=== PATIENT | female | born 1985 | race Caucasian/White ===

== ENCOUNTER → 2017-10-29 09:20 | Outpatient (CLI) | payer OTHER, SELFPAY ==
--- NOTE | 2017-10-29 | DI.US.S_ITS ---
PROCEDURE: US ABDOMEN LIMITED INDICATIONS: UMBILICAL HERNIA WITHOUT OBSTRUCTION TECHNIQUE: Real-time focused scanning was performed of the abdomen, with image documentation. COMPARISON: None. FINDINGS: There is a 2.9 x 1.8 x 2.9 cm bowel containing anterior abdominal hernia in the area palpated by the patient. The neck measures 1.1 cm in diameter. This is not reducible. No findings to suggest bowel dilatation or obstruction. IMPRESSION: 1. Bowel containing umbilical hernia without findings to suggest obstruction at this time. Surgical consultation recommended. These findings were discussed with CED Love at 9:18 AM on 10/29/17. Dictated by: Gisselle Scott M.D. on 10/29/2017 at 9:03 Approved by: Gisselle Scott M.D. on 10/29/2017 at 9:19
== END ==
PROVIDERS: PCP Physician Assistant; Visit Provider Nurse Practitioner Family
DX: K42.9 Umbilical hernia without obstruction or gangrene (principal)
CPT/HCPCS: 76705

== ENCOUNTER 2017-12-23 06:34 | Day surgery (SDC) | payer OTHER, SELFPAY ==
[2017-12-10 07:50] VITALS: BMI 24.4
[2017-12-23 07:17] VITALS: BP 110/71; PULSE 68; RESP 15; TEMP 36.2; O2SAT 98; BMI 24.4
--- NOTE | 2017-12-23 08:12 | SUR.OPER ---
Supine on padded OR bed, head on pillow, arms secured on padded arm boards at <90 degrees abduction, legs uncrossed, safety belt at thigh, tape over blanket over lower legs.
[2017-12-23] MEDS: LACTATED RINGERS 1,000 ML 42 ML IV (08:22)
[2017-12-23] MEDS: CEFAZOLIN 2 GM/100 ML FROZ.PIGGY IV (08:40)
--- NOTE | 2017-12-23 08:51 | PM.PREOP ---
Pre-operative Note Interval Note Pre-op Check: Yes History & Physical Reviewed by Physician Changes: No
[2017-12-23] MEDS: BUPIVACAINE 0.5% (PF) VIAL 30 ML INJ (09:05)
[2017-12-23] MEDS: LIDOCAINE 1% W/EPI INJ 20 ML INJ (09:06)
[2017-12-23 09:43] VITALS: BP 106/56; PULSE 99; RESP 15; TEMP 36.2; O2SAT 100
--- NOTE | 2017-12-23 09:46 | PM.OP.1 ---
Operative Date/Time/Diagnoses Date of procedure: 12/23/17 Time of procedure: 09:46 Pre-op diagnosis: Umbilical hernia Post-op diagnosis: same Procedure & Clinicians Procedure: Umbilical hernia repair Same procedure as scheduled: Yes Indications: Painful and enlarging umbilical hernia Surgeon: Caroline Mackey Anesthesia Type: General (Dr. Coleman) Operative Notes Findings: 5 mm umbilical defect with a much larger hernia sac of approximately 4 cm size Closure Type: primary Specimen(s): none sent Implants & Drains: None Estimated Blood Loss (mL): 5 Procedure in detail: After obtaining informed consent, the patient was brought to the operating room and placed in the supine position on the operating table. Following successful induction of general anesthesia, appropriate padding of all bony prominences, and placement of appropriate monitors, the abdomen was prepped and draped in the standard surgical fashion. A timeout was held per SCOAP protocol. We began by infiltrating a mixture of local anesthetics directly over the hernia defect and in the fascia around the defect at the umbilicus. This was done to create a field block. An incision was then created directly over the hernia defect and the palpable sac. This was carried carefully down through the skin and subcutaneous tissue until the sac was easily visible and palpable. The edges of the hernia were carefully defined. It was determined to be approximately 0.5 cm in greatest dimension. The contents of the hernia sac consisted of approximately 4 cm of preperitoneal fat. We elected to repair the defect directly with only 0 Prolene suture. Two interrupted sutures were placed directly across the defect. The repair was checked for completeness and to be sure that all defects were securely approximated. The wound was irrigated with warm saline solution and aspirated free of all fluid. The umbilicus was reconstructed with 0 Vicryl suture. The skin overlying this area was closed in 2 layers. All sponge, needle, and instrument counts were correct at the conclusion of the case. The patient was allowed to awaken from anesthesia without difficulty and taken to the post-anesthesia care unit in good condition. Complications: none Condition: stable Disposition: PACU Plan for aftercare: 1. Discharge to home 2. Follow up with me in 2 weeks
[2017-12-23 09:48] VITALS: BP 112/58; PULSE 90; RESP 15; TEMP 36.2; O2SAT 100
[2017-12-23 09:53] VITALS: BP 114/64; PULSE 80; RESP 16; TEMP 36.4; O2SAT 100
[2017-12-23 10:10] VITALS: BP 116/74; PULSE 78; RESP 20; TEMP 36.3; O2SAT 97
[2017-12-23 10:31] VITALS: BP 115/74; PULSE 74; RESP 20; TEMP 36.4; O2SAT 98
== END 2017-12-23 10:25 | disposition home or self-care (01) ==
PROVIDERS: PCP Physician Assistant; Visit Provider Surgery
PROC: (CPT 49585; principal; 2017-12-23 07:45)
DX: K42.9 Umbilical hernia without obstruction or gangrene (principal)
CPT/HCPCS: 49585; J0690; J1100; J2250; J2405; J2704; J3010

== ENCOUNTER 2023-12-31 18:54 | Emergency (ER) | payer OTHER, SELFPAY ==
[2023-12-31 19:07] VITALS: BP 116/75; PULSE 81; RESP 18; TEMP 36.6; O2SAT 97; BMI 26.5
--- NOTE | 2023-12-31 19:29 | DI.US.S_ITS ---
PROCEDURE: US OB <= 14 WEEKS FETUS INDICATIONS: bleeding/6 weeks OUTSIDE/PRIOR DATING DATA: Last menstrual period (LMP): 11/18/2023. LMP-based estimated date of delivery ([place]): 08/24/2024. TECHNIQUE: Real-time scanning was performed of the fetus and maternal pelvic organs, with image documentation. Endovaginal scanning was also performed to better visualize the fetus and maternal ovaries. COMPARISON: None. FINDINGS: Embryo: Gestational sac measuring 0.85 cm, consistent with 5 weeks and 5 days. No pole is seen. No yolk sac is seen. Heart rate: No pole is seen. Maternal organs: Ovaries are within normal limits. Right ovarian corpus luteal cyst measuring 2.7 cm. IMPRESSION: Gestational sac within the endometrium which would be consistent with 5 weeks and 5 days. No yolk sac or pole is seen. Early intrauterine is in the differential and follow-up beta HCG and ultrasound is recommended as clinically indicated. We strive to produce accurate, complete, and clear reports of imaging services. To assist us in improving patient care, this report was composed using standard report templates and voice recognition software. Therefore, it may contain abnormal punctuation, insertions and/or omissions. Occasional wrong-word or sound-alike substitutions may occur. Though we review the report and make efforts to correct it, we do recommend that the report be read carefully in proper context to recognize any text inaccuracies. Dictated by: Humberto Valverde M.D. on 12/31/2023 at 22:02 Approved by: Humberto Valverde M.D. on 12/31/2023 at 22:04
[2023-12-31 20:09] LABS: Add Manual Diff / Slide Review NO; Basophils Absolute Auto 0 /uL (0-100); Basophils Percent Auto 0.7 % (0-2); Eosinophils Absolute Auto 300 /uL (0-450); Eosinophils Percent Auto 5.6 % (2-4); Hematocrit 37.9 % (36-46); Hemoglobin 12.8 g/dL (12.0-16.0); Lymphocytes Absolute Auto 2100 /uL (1100-4500); Lymphocytes Percent Auto 35.7 % (25-40); Mean Corpuscular HGB Conc 33.8 % (30-36); Mean Corpuscular Hemoglobin 31.7 PG (26-34); Mean Corpuscular Volume 93.7 fL (80-100); Monocytes Absolute Auto 400 /uL (0-900); Monocytes Percent Auto 7.3 % (3-14); Neutrophils Absolute Auto 3000 /uL (1500-7000); Neutrophils Percent Auto 50.7 % (50-75); Platelet Count 296 X10^3/uL (150-400); Red Blood Cell Count 4.05 X10^6/uL (4.0-5.2); Red Cell Distribution Width 12.9 % (11.6-14.8); White Blood Cell Count 5.9 X10^3/uL (4.5-11.0)
[2023-12-31 20:10] LABS: Alanine Aminotransferase 21 IU/L (<35); Albumin 4.2 g/dL (3.5-5.0); Albumin Globulin Ratio 1.4 (1.0-2.8); Alkaline Phosphatase 37 U/L (38-126); Aspartate Aminotransferase 30 IU/L (14-36); BUN Creatinine Ratio 15.6 (6-22); Bilirubin Total 0.4 mg/dL (0.2-1.3); Blood Urea Nitrogen 15 mg/dL (7-17); Calcium 9.4 mg/dL (8.4-10.2); Carbon Dioxide 29 mmol/L (22-32); Chloride 102 mmol/L (98-107); Estimated Glomerular Filt Rate > 60 mL/min (>60); Globulin 2.9 g/dL (1.7-4.1); Glucose 86 mg/dL (70-100); HEMOLYSIS < 15 (0-50); Sodium 135 mmol/L (137-145); Total Protein 7.1 g/dL (6.3-8.2)
[2023-12-31 20:26] LABS: HCG Quantitative /Beta subunit 1690.2 mIU/mL
--- NOTE | 2023-12-31 20:56 | PC.NURSE ---
Patient started having bleeding at 1200. Clots, spotting. Then cramps since 1600
--- NOTE | 2023-12-31 21:09 | PC.NURSE ---
patient is who presents today with spotting starting at 1200 with clots. She developed cramping which has not resolved since 1600. she complains of abd tenderness on palpation. She denies lightheadedness, dizzyness, SOB, or chest pain. She states that she had been treated for shingles with valcycolvir and finished the 7 day course which finished on thursday.
[2023-12-31] MEDS: ACETAMINOPHEN 325 MG TABLET 975 MG PO (21:16)
--- NOTE | 2023-12-31 22:26 | ED.PREGNANCY ---
HPI - General Chief complaint: Vaginal Bleeding Stated complaint: Vaginal Bleeding, 6 wks prgnt sent by OB Time Seen by Provider: 12/31/23 21:14 Source: patient and family Mode of arrival: Ambulatory Limitations: no limitations History of Present Illness HPI Narrative: Patient is a 38 year female presenting today with vaginal bleeding. She reports that she started having some bright red spotting only when she wiped she has not yet gone through a whole pad. She is having more intense abdominal cramping as well. She has never had miscarriage before. Not dizzy or lightheaded. Reports Tylenol isn't quite yet helping. Related Data Home Medications Medication Instructions Recorded Confirmed cholecalciferol (vitamin D3) PO 11/10/17 12/24/23 garlic kyolic PO 11/10/17 12/24/23 omega-3 fatty acids PO 11/10/17 12/24/23 prenat.vits,lowell,ywq-ypeb-djfgz 1 tab PO DAILY 11/10/17 12/24/23 magnesium 250 mg tablet 250 mg PO DAILY 12/24/23 12/24/23 valacyclovir 1 gram tablet 1,000 mg PO Q8H 12/24/23 12/24/23 Allergies Allergy/AdvReac Type Severity Reaction Status Date / Time shrimp Allergy Severe swelling, Verified 12/24/23 15:53 itching Milk Containing Products AdvReac Abdominal Verified 12/24/23 15:54 (Dairy) Pain wheat AdvReac Verified 12/24/23 15:54 CAT DANDER Allergy Mild ITCHY Uncoded 12/24/23 15:53 WATERY EYES DUST AdvReac Mild RED AND Uncoded 12/24/23 15:53 ITCHY SKIN, WATERY EYES, AND SNEEZING pollens AdvReac Mild Sneezing Uncoded 12/24/23 15:53 Exam Initial Vital Signs Initial Vital Signs: Vital Signs Temperature 98 F 12/31/23 19:07 Pulse Rate 81 12/31/23 19:07 Respiratory Rate 18 12/31/23 19:07 Blood Pressure 116/75 12/31/23 19:07 Pulse Oximetry 97 12/31/23 19:07 Oxygen Delivery Method Room Air 12/31/23 19:07 GENERAL: Alert well-appearing 38-year-old female CARDIOVASCULAR: peripheral pulses in tact, cap refill <2 sec RESPIRATORY: No respiratory distress, speaks in full sentences without difficulty ABDOMEN: Soft, nontender, no guarding or rebound EXTREMITIES: Normal range of motion, no clubbing or edema. Neurovascularly intact NEUROLOGICAL: Cranial nerves II through XII grossly intact. Normal gait and speech. SKIN: Warm, dry, no petechiae, no rashes or lesions. Course Orders Ordered: ED Orders 12/31/23 19:29 US OB <= 14 weeks fetus Stat 12/31/23 19:32 ABO RH Type Stat Complete Blood Count AUTO DIFF Stat Comprehensive Metabolic Panel Stat HCG Quantitative /Beta subunit Stat Discontinued Medications Acetaminophen (Acetaminophen 325 Mg Tablet) 975 mg PO NOW ONE Stop: 12/31/23 21:15 Last Admin: 12/31/23 21:16 Dose: 975 mg Documented By: DINORAH Vital Signs Vital signs: Vital Signs - 8 hr 12/31/23 19:07 12/31/23 22:38 Temperature 98 F 98.6 F Pulse Rate 81 60 Respiratory Rate 18 18 Blood Pressure 116/75 111/60 Pulse Oximetry 97 98 Oxygen Delivery Method Room Air Room Air MDM - OB/Uterine Contractions Lab Data 12/31/23 19:32 12/31/23 19:32 Labs: Lab Results 12/31/23 Range/Units 19:32 WBC 5.9 (4.5-11.0) X10^3/uL RBC 4.05 (4.0-5.2) X10^6/uL Hgb 12.8 (12.0-16.0) g/dL Hct 37.9 (36-46) % MCV 93.7 (80-100) fL MCH 31.7 (26-34) PG MCHC 33.8 (30-36) % RDW 12.9 (11.6-14.8) % Plt Count 296 (150-400) X10^3/uL Neut % (Auto) 50.7 (50-75) % Lymph % (Auto) 35.7 (25-40) % [place] % (Auto) 7.3 (3-14) % Eos % (Auto) 5.6 H (2-4) % Baso % (Auto) 0.7 (0-2) % Neut # (Auto) 3000 (4490-1526) /uL Lymph # (Auto) 2100 (9397-3143) /uL [place] # (Auto) 400 (0-900) /uL Eos # (Auto) 300 (0-450) /uL Baso # (Auto) 0 (0-100) /uL Sodium 135 L (137-145) mmol/L Potassium 4.0 (3.4-5.1) mmol/L Chloride 102 (98-107) mmol/L Carbon Dioxide 29 (22-32) mmol/L BUN 15 (7-17) mg/dL Creatinine 0.96 (0.52-1.04) mg/dL Estimated GFR > 60 (>60) mL/min BUN/Creatinine Ratio 15.6 (6-22) Glucose 86 (70-100) mg/dL Calcium 9.4 (8.4-10.2) mg/dL Total Bilirubin 0.4 (0.2-1.3) mg/dL AST 30 (14-36) IU/L ALT 21 (<35) IU/L Alkaline Phosphatase 37 L (38-126) U/L Total Protein 7.1 (6.3-8.2) g/dL Albumin 4.2 (3.5-5.0) g/dL Globulin 2.9 (1.7-4.1) g/dL Albumin/Globulin Ratio 1.4 (1.0-2.8) HCG, Quant 1690.2 mIU/mL Blood Type A Positive Point of Care Testing Test Results Positive Urine Dip Bedside Urine Glucose Negative Bedside Urine Bilirubin - Negative Bedside Urine Ketone - Negative Urine Specific [place] 1.015 Bedside Urine Occult Blood - Negative Bedside Urine pH 7.5 Bedside Urine Protein - Negative Bedside Urine Urobilinogen - Negative Bedside Urine Nitrite - Negative Bedside Urine Leukocytes - Negative Esterase Imaging Data US - OB: Radiologist's Impression: PROCEDURE: US OB <= 14 WEEKS FETUS INDICATIONS: bleeding/6 weeks OUTSIDE/PRIOR DATING DATA: Last menstrual period (LMP): 11/18/2023. LMP-based estimated date of delivery ([place]): 08/24/2024. TECHNIQUE: Real-time scanning was performed of the fetus and maternal pelvic organs, with image documentation. Endovaginal scanning was also performed to better visualize the fetus and maternal ovaries. COMPARISON: None. FINDINGS: Embryo: Gestational sac measuring 0.85 cm, consistent with 5 weeks and 5 days. No pole is seen. No yolk sac is seen. Heart rate: No pole is seen. Maternal organs: Ovaries are within normal limits. Right ovarian corpus luteal cyst measuring 2.7 cm. IMPRESSION: Gestational sac within the endometrium which would be consistent with 5 weeks and 5 days. No yolk sac or pole is seen. Early intrauterine is in the differential and follow-up beta HCG and ultrasound is recommended as clinically indicated. We strive to produce accurate, complete, and clear reports of imaging services. To assist us in improving patient care, this report was composed using standard report templates and voice recognition software. Therefore, it may contain abnormal punctuation, insertions and/or omissions. Occasional wrong-word or sound-alike substitutions may occur. Though we review the report and make efforts to correct it, we do recommend that the report be read carefully in proper context to recognize any text inaccuracies. Dictated by: Humberto Valverde M.D. on 12/31/2023 at 22:02 MDM Narrative Medical decision making narrative: Patient 38-year-old female presenting today with vaginal spotting and increased abdominal pain. She did establish care with Dr. Rubio for her OB care. She has not yet had an ultrasound. Ultrasound today does show a gestational sac within the endometrium consistent with 5 weeks and 5 days but no yolk sac or pole or heart tone is noted. Beta hCG is 1690 Rh positive, no need for RhoGAM At this time she has no obvious evidence of ectopic not tender exam, he is found to have an IUP however yolk sac pole and heart tone are not yet identified. This may be early miscarriage versus too early. She is established with an physician for OB care. Vitals are stable. Discussion with patient she needs repeat beta hCG which can be arranged with her physician. Strict return precautions of increased bleeding as well as pelvic rest. Discharge Plan Departure Patient Disposition: Home Clinical Impression: Threatened Instructions: DI for Vaginal Bleeding During Activity Restrictions/Additional Instructions: HCG 16 90 *You have been diagnosed with vaginal bleeding with *What to do: At this time you need repeat hCG in 48 hours. Your OBGYN can order this as an outpatient for you. At this time recommend pelvic rest no intercourse nothing in her out of the vagina *Continue to take medications as directed Tylenol 1000 mg every 6 hours if needed for [id number] pain *Follow up with your primary care provider in 2-3 days or call [phone] Dr. Lomeli, call her office tomorrow to schedule for blood work and re-evaluation *Return to ER if you should have increased vaginal bleeding more than 2 pads an hour increasing pain, large blood clot or any new, worsening or concerning symptoms Prescriptions: No Action magnesium 250 mg tablet 250 mg PO DAILY valacyclovir 1 gram tablet 1,000 mg PO Q8H prenat.vits,lowell,jye-herq-eovqt tablet 1 tab PO DAILY cholecalciferol (vitamin D3) PO garlic kyolic PO omega-3 fatty acids PO Referrals: Daisy Lomeli MD [Physician] - Miscellaneous,DoctorMD [Primary Care Provider] - Stand Alone Forms: Patient Portal/API
[2023-12-31 22:38] VITALS: BP 111/60; PULSE 60; RESP 18; TEMP 37; O2SAT 98
== END 2023-12-31 22:44 | disposition home or self-care (01) ==
PROVIDERS: Emergency Provider Emergency Medicine
DX: O20.0 Threatened abortion (principal); Z3A.01 Less than 8 weeks gestation of pregnancy
CPT/HCPCS: 76801; 80053; 81003; 81025; 84702; 85025; 86900; 86901; 99284

== ENCOUNTER → 2024-01-04 13:21 | Outpatient (CLI) | payer OTHER, SELFPAY ==
[2024-01-04 15:47] LABS: HCG Quantitative /Beta subunit 1129.6 mIU/mL
== END ==
LOC: LAB 13:22
PROVIDERS: Referring Provider Family Medicine; Visit Provider Family Medicine
DX: O20.0 Threatened abortion (principal)
CPT/HCPCS: 36415; 84702

== ENCOUNTER → 2024-01-15 16:54 | Outpatient (CLI) | payer OTHER, SELFPAY ==
--- NOTE | 2024-01-15 16:55 | DI.US.S_ITS ---
PROCEDURE: US PELVIC COMPLETE INDICATIONS: dating and viability TECHNIQUE: Real-time scanning was performed of the pelvic organs, with image documentation. Additional endovaginal scanning was necessary due to incomplete visualization of the adnexal and endometrial structures by transabdominal scanning. COMPARISON: [facility], US, US OB <= 14 WEEKS FETUS, 12/31/2023, 20:29. FINDINGS: Uterus: Uterus is anteverted and normal in size at 7.6 x 5.4 x 3 cm. The myometrium is homogeneous. The endometrium measures 9 mm combined thickness. Pocket of platelike anechoic fluid or gestational sac within the endometrial canal measuring 0.9 x 0.9 x 0.2 cm. No yolk sac. No pole. Ovaries: The right ovary measures 5.4 x 3.9 x 3.3 cm, with a calculated ovarian volume of 37 cc. The left ovary measures 3.4 x 2.6 x 2.5 cm, with a calculated ovarian volume of 12 cc. Less than 12 follicles can be seen in each ovary. Multiple right ovarian cysts. Largest cyst is anechoic and measures 3.2 cm. Dominant left ovarian follicle measuring 2 cm. Other: No pathologic free abdominal or pelvic fluid. IMPRESSION: 1. Ultrasound findings diagnostic of failure. Absence of an embryo with a heart beat 2 or more weeks after ultrasound showed gestational sac without yolk sac. Small platelike anechoic fluid within the endometrium. No pole. 2. Small anechoic ovarian cysts. We strive to produce accurate, complete, and clear reports of imaging services. To assist us in improving patient care, this report was composed using standard report templates and voice recognition software. Therefore, it may contain abnormal punctuation, insertions and/or omissions. Occasional wrong-word or sound-alike substitutions may occur. Though we review the report and make efforts to correct it, we do recommend that the report be read carefully in proper context to recognize any text inaccuracies. Dictated by: Marquise Marrero M.D. on 01/15/2024 at 18:35 Approved by: Marquise Marrero M.D. on 01/15/2024 at 18:43
== END ==
LOC: US 16:54
PROVIDERS: PCP Family Medicine; Referring Provider Family Medicine; Visit Provider Family Medicine
DX: O03.9 Complete or unspecified spontaneous abortion without complication (principal)
CPT/HCPCS: 76856

== ENCOUNTER 2024-01-15 17:35 | Emergency (ER) | payer OTHER, SELFPAY ==
[2024-01-15 17:43] VITALS: BP 115/66; PULSE 68; RESP 16; TEMP 36.6; O2SAT 100; BMI 26.5
[2024-01-15 18:26] LABS: Add Manual Diff / Slide Review NO; Basophils Absolute Auto 0 /uL (0-100); Basophils Percent Auto 0.5 % (0-2); Eosinophils Absolute Auto 300 /uL (0-450); Eosinophils Percent Auto 6.2 % (2-4); Hematocrit 36.4 % (36-46); Hemoglobin 12.5 g/dL (12.0-16.0); Lymphocytes Absolute Auto 2100 /uL (1100-4500); Lymphocytes Percent Auto 39.2 % (25-40); Mean Corpuscular HGB Conc 34.5 % (30-36); Mean Corpuscular Hemoglobin 32.2 PG (26-34); Mean Corpuscular Volume 93.3 fL (80-100); Monocytes Absolute Auto 400 /uL (0-900); Monocytes Percent Auto 7.1 % (3-14); Neutrophils Absolute Auto 2500 /uL (1500-7000); Platelet Count 275 X10^3/uL (150-400); Red Cell Distribution Width 13.1 % (11.6-14.8); White Blood Cell Count 5.3 X10^3/uL (4.5-11.0)
[2024-01-15 18:38] LABS: Alanine Aminotransferase 23 IU/L (<35); Albumin Globulin Ratio 1.4 (1.0-2.8); Alkaline Phosphatase 44 U/L (38-126); Aspartate Aminotransferase 28 IU/L (14-36); BUN Creatinine Ratio 23.3 (6-22); Bilirubin Total 0.4 mg/dL (0.2-1.3); Blood Urea Nitrogen 17 mg/dL (7-17); Calcium 9.4 mg/dL (8.4-10.2); Carbon Dioxide 26 mmol/L (22-32); Chloride 105 mmol/L (98-107); Estimated Glomerular Filt Rate > 60 mL/min (>60); Globulin 2.9 g/dL (1.7-4.1); Glucose 89 mg/dL (70-100); HEMOLYSIS < 15 (0-50); Lipase 107 U/L (23-300); Potassium 3.6 mmol/L (3.4-5.1); Sodium 134 mmol/L (137-145); Total Protein 6.9 g/dL (6.3-8.2)
[2024-01-15 18:55] LABS: HCG Quantitative /Beta subunit 653.19 mIU/mL
--- NOTE | 2024-01-15 19:05 | ED_ITS ---
HPI - General Chief complaint: Vaginal Bleeding Stated complaint: abn labs sent by Dr Lomeli Time Seen by Provider: 01/15/24 18:07 Source: patient Mode of arrival: Family Vehicle Limitations: no limitations History of Present Illness HPI Narrative: 38-year-old female with 2 living children, care this early so far with Jung, has been having ongoing intermittent vaginal bleeding this last couple weeks, gestational sac on ultrasound visit to the emergency department on 12/31/2023, Rh positive known, seemed to have more bleeding subsequent days, bleeding stopped 01/03/2024, now with some more spotting through the day today. No dizziness. No syncope or presyncope. No fevers or chills. Some abdominal cramping. care through Dr. Feng, had outpatient ultrasound done this afternoon, referred here for abnormal results. She had not do details of the pelvic ultrasound results however. Related Data Home Medications Medication Instructions Recorded Confirmed cholecalciferol (vitamin D3) PO 11/10/17 01/04/24 garlic kyolic PO 11/10/17 01/04/24 omega-3 fatty acids PO 11/10/17 01/04/24 prenat.vits,lowell,wqv-yctf-ytpct 1 tab PO DAILY 11/10/17 01/04/24 magnesium 250 mg tablet 250 mg PO DAILY 12/24/23 01/04/24 valacyclovir 1 gram tablet 1,000 mg PO Q8H 12/24/23 01/04/24 Allergies Allergy/AdvReac Type Severity Reaction Status Date / Time shrimp Allergy Severe swelling, Verified 01/04/24 14:52 itching Milk Containing Products AdvReac Abdominal Verified 01/04/24 14:52 (Dairy) Pain wheat AdvReac Verified 01/04/24 14:52 CAT DANDER Allergy Mild ITCHY Uncoded 01/04/24 14:52 WATERY EYES DUST AdvReac Mild RED AND Uncoded 01/04/24 14:52 ITCHY SKIN, WATERY EYES, AND SNEEZING pollens AdvReac Mild Sneezing Uncoded 01/04/24 14:52 Review of Systems Review of Systems Narrative: see HPI Exam Narrative Exam Narrative: GENERAL: Well-developed patient, in mild distress. HEAD: Atraumatic. Normocephalic. EYES: Pupils equal round and reactive. Extraocular motions intact. No scleral icterus. No injection or drainage. ENT: Nose without bleeding, purulent drainage. Throat without erythema, tonsillar hypertrophy or exudate. Airway patent. NECK: Trachea midline. Non tender CARDIOVASCULAR: Regular rate and rhythm without murmurs, gallops, or rubs. RESPIRATORY: Clear to auscultation. Breath sounds equal bilaterally. No wheezes, rales, or rhonchi. GASTROINTESTINAL: Abdomen soft, non-tender, nondistended. EXTREMITIES: No edema or joint tenderness. BACK: Nontender without deformity or crepitance. No flank tenderness. NEURO: AOx3. Motor exam grossly nonfocal SKIN: No rash or erythema of visible areas Initial Vital Signs Initial Vital Signs: Vital Signs Temperature 97.8 F 01/15/24 17:43 Pulse Rate 68 01/15/24 17:43 Respiratory Rate 16 01/15/24 17:43 Blood Pressure 115/66 01/15/24 17:43 Pulse Oximetry 100 01/15/24 17:43 Oxygen Delivery Method Room Air 01/15/24 17:43 Course Orders Ordered: ED Orders 01/15/24 18:07 Complete Blood Count AUTO DIFF Stat Comprehensive Metabolic Panel Stat HCG Quantitative /Beta subunit Stat Lipase Stat Discontinued Medications Hydrocodone Bitart/Acetaminophen (Hydrocodone/Acet 5/325 Prepack) 1 bottle MISC DIRECTED ONE Stop: 01/15/24 19:53 Last Admin: 01/15/24 20:00 Dose: 1 bottle Documented By: MARYLOU Ondansetron HCl (Ondansetron 4 Mg Odt Prepack) 1 bottle MISC DIRECTED ONE Stop: 01/15/24 19:53 Last Admin: 01/15/24 20:00 Dose: 1 bottle Documented By: MARYLOU Vital Signs Vital signs: Vital Signs - 8 hr 01/15/24 19:53 Temperature 98.1 F Pulse Rate 62 Respiratory Rate 16 Blood Pressure 108/62 Pulse Oximetry 99 Oxygen Delivery Method Room Air MDM - OB/Uterine Contractions Lab Data Attestation: I reviewed the patient's lab results. 01/15/24 18:07 01/15/24 18:07 Labs: Lab Results 01/15/24 Range/Units 18:07 WBC 5.3 (4.5-11.0) X10^3/uL RBC 3.90 L (4.0-5.2) X10^6/uL Hgb 12.5 (12.0-16.0) g/dL Hct 36.4 (36-46) % MCV 93.3 (80-100) fL MCH 32.2 (26-34) PG MCHC 34.5 (30-36) % RDW 13.1 (11.6-14.8) % Plt Count 275 (150-400) X10^3/uL Neut % (Auto) 47.0 L (50-75) % Lymph % (Auto) 39.2 (25-40) % [place] % (Auto) 7.1 (3-14) % Eos % (Auto) 6.2 H (2-4) % Baso % (Auto) 0.5 (0-2) % Neut # (Auto) 2500 (1099-8145) /uL Lymph # (Auto) 2100 (3207-8905) /uL [place] # (Auto) 400 (0-900) /uL Eos # (Auto) 300 (0-450) /uL Baso # (Auto) 0 (0-100) /uL Sodium 134 L (137-145) mmol/L Potassium 3.6 (3.4-5.1) mmol/L Chloride 105 (98-107) mmol/L Carbon Dioxide 26 (22-32) mmol/L BUN 17 (7-17) mg/dL Creatinine 0.73 (0.52-1.04) mg/dL Estimated GFR > 60 (>60) mL/min BUN/Creatinine Ratio 23.3 H (6-22) Glucose 89 (70-100) mg/dL Calcium 9.4 (8.4-10.2) mg/dL Total Bilirubin 0.4 (0.2-1.3) mg/dL AST 28 (14-36) IU/L ALT 23 (<35) IU/L Alkaline Phosphatase 44 (38-126) U/L Total Protein 6.9 (6.3-8.2) g/dL Albumin 4.0 (3.5-5.0) g/dL Globulin 2.9 (1.7-4.1) g/dL Albumin/Globulin Ratio 1.4 (1.0-2.8) Lipase 107 (23-300) U/L HCG, Quant 653.19 mIU/mL MDM Narrative Medical decision making narrative: 38-year-old with recent ultrasound 12/31/2023 showing 5 week 5 day he woke sac, intermittent bleeding, stopped 3 days later from that ultrasound, now bleeding again today, hemoglobin 12.5 not significantly decreased from value on 12/31/2023, serum hCG 653 today, which is decreased from 1650 on 01/04/2024, from 1129 on 12/31/23. Known Rh positive. Afebrile, unremarkable triage vitals, abdomen benign. Ultrasound pelvic complete study done 01/15/24 earlier this afernoon as an outpatient. Report located. Impressions: ?Ultrasound findings diagnostic of failure. Absence of an embryo with heartbeat 2 or more weeks after ultrasound showed gestational sac without yolk sac. Small platelike anechoic fluid within the endometrium. No pole. Small anechoic ovarian cysts.. See radiology report Records review, pelvic ultrasound report from here done 12/31/2023. Impression: ?Gestational sac within the endometrium which would be consistent with 5 weeks 5 days. No yolk sac or pole seen. Early intrauterine pregnancies in the differential and follow up beta hCG and ultrasound is recommended as clinically indicated.. See radiology report 1930, case discussed with Obstetrics on-call Dr. Clark, can see patient early next week if she desires [facility] interventions, he is on-call over the weekend as well, patient can call his office for guidance, could offer patient trial of misoprostol, would give potent analgesics as needed Patient declines misoprostol, wants home trial of spontaneous passage of demise, agreeable to analgesics to help with passage of gestational sac anticipated, home pack hydrocodone/APAP, home pack ondansetron ODT. Take wycm-fhb-lrgpuag anti-inflammatories as needed. Can contact obstetrics over this weekend for guidance. Return precautions to the emergency department otherwise relayed. Home with family. Discharge Plan Departure Patient Disposition: Home Clinical Impression: Miscarriage Activity Restrictions/Additional Instructions: Ongoing miscarriage symptoms, most recent ultrasound before today was 12/31/23 showing 5 week 5 day gestational sac, more bleeding, that seemed to stop on 01/03/2024, now in current of bleeding tonight. Hemoglobin 12.5 little change from prior visit on 12/31/2023. Serum hCG is further decreased from previous values, consistent with miscarriage. Prior Rh status noted to be positive, no medications needed for blood type/Rh at this time. Ultrasound done as an outpatient today showed lower uterine segment and proximal cervical canal area sac, still present. Case discussed with on-call obstetrics Dr. Clark, who suggested possible use of misoprostol, you declined this for now. Pain medication and antinausea medication home pack provided to use if needed. You elected to attempt to try to pass the miscarriage on your own for now. Return precautions discussed. Dr. Clark has also on-call over the weekend and can be contacted as needed. He can see you early next week to consider arrangement for interventions if you still have not had passage of tissue and completion of miscarriage by that time. Return earlier to this/nearest emergency department for any change worsening symptoms or any concerns prior Prescriptions: No Action magnesium 250 mg tablet 250 mg PO DAILY valacyclovir 1 gram tablet 1,000 mg PO Q8H prenat.vits,lowell,jfg-mlfv-gpmkk tablet 1 tab PO DAILY cholecalciferol (vitamin D3) PO garlic kyolic PO omega-3 fatty acids PO Referrals: Daisy Lomeli MD [Primary Care Provider] - Lalo Clark MD [Physician] - Stand Alone Forms: Patient Portal/API
[2024-01-15 19:53] VITALS: BP 108/62; PULSE 62; RESP 16; TEMP 36.7; O2SAT 99
[2024-01-15] MEDS: HYDROCODONE/ACET 5/325 PREPACK 1 BOTTLE MISC (20:00)
[2024-01-15] MEDS: ONDANSETRON 4 MG ODT PREPACK 1 BOTTLE MISC (20:00)
== END 2024-01-15 20:03 | disposition home or self-care (01) ==
PROVIDERS: Emergency Medicine; Emergency Provider Emergency Medicine; PCP Family Medicine
DX: O03.9 Complete or unspecified spontaneous abortion without complication (principal)
CPT/HCPCS: 36415; 76856; 80053; 83690; 84702; 85025; 99283

== ENCOUNTER → 2024-01-26 10:02 | Outpatient (CLI) | payer OTHER, SELFPAY ==
--- NOTE | 2024-01-26 10:04 | DI.US.S_ITS ---
PROCEDURE: US PELVIC COMPLETE INDICATIONS: Miscarriage TECHNIQUE: Real-time scanning was performed of the pelvic organs, with image documentation. Additional endovaginal scanning was necessary due to incomplete visualization of the adnexal and endometrial structures by transabdominal scanning. COMPARISON: None. FINDINGS: Uterus: Uterus is anteverted and normal in size at 9.3 x 4.1 x 4.9 cm. The myometrium is homogeneous. The endometrium measures 14.8 mm combined thickness. There is a 1.3 x 0.9 x 1.4 centimeter solid-cystic lesion in the endometrium with minimal internal vascularity. Ovaries: The right ovary measures 4.6 x 5.3 x 3.7 cm, with a calculated ovarian volume of 46.5 cc. The left ovary measures 3.5 x 2.5 x 2.5 cm, with a calculated ovarian volume of 11.4 cc. There is a 3.3 x 3.4 x 3.1 centimeter septated right ovarian cyst. There is a 2.0 x 1.7 x 1.1 centimeter complex left ovarian cyst. There is a 1.3 centimeter simple left ovarian cyst. Less than 12 follicles can be seen in each ovary. No adnexal masses are seen. Other: No pathologic free abdominal or pelvic fluid. IMPRESSION: No intrauterine identified. 3.1 x 0.9 x 1.4 centimeter solid-cystic lesion in the endometrium which may represent retained products of conception. Bilateral complex ovarian cysts. Recommend follow-up pelvic ultrasound in 6-12 weeks. Dictated by: Zuleyma Mullins MD, PhD on 01/26/2024 at 11:10 Approved by: Zuleyma Mullins MD, PhD on 01/26/2024 at 11:15
[2024-01-26 10:25] LABS: Add Manual Diff / Slide Review NO; Basophils Absolute Auto 0 /uL (0-100); Basophils Percent Auto 0.9 % (0-2); Eosinophils Absolute Auto 200 /uL (0-450); Eosinophils Percent Auto 7.1 % (2-4); Hematocrit 38.8 % (36-46); Hemoglobin 13.2 g/dL (12.0-16.0); Lymphocytes Absolute Auto 1200 /uL (1100-4500); Lymphocytes Percent Auto 34.9 % (25-40); Mean Corpuscular HGB Conc 33.9 % (30-36); Mean Corpuscular Hemoglobin 31.4 PG (26-34); Mean Corpuscular Volume 92.6 fL (80-100); Monocytes Absolute Auto 300 /uL (0-900); Monocytes Percent Auto 7.9 % (3-14); Neutrophils Absolute Auto 1700 /uL (1500-7000); Neutrophils Percent Auto 49.2 % (50-75); Platelet Count 312 X10^3/uL (150-400); Red Blood Cell Count 4.19 X10^6/uL (4.0-5.2); White Blood Cell Count 3.4 X10^3/uL (4.5-11.0)
[2024-01-26 10:59] LABS: HCG Quantitative /Beta subunit 142.13 mIU/mL; HEMOLYSIS < 15 (0-50); Total Iron Binding Capacity 264 ug/dL (265-497)
[2024-01-26 11:00] LABS: Transferrin 214 mg/dL (206-381)
[2024-01-26 11:01] LABS: Iron 124 ug/dL (37-170); Percent Iron Saturation 47 % (15-50)
[2024-01-26 11:17] LABS: Ferritin 32 ng/mL (6-137)
== END ==
PROVIDERS: PCP Family Medicine; Referring Provider Student in an Organized Health Care Education/Training Program; Visit Provider Student in an Organized Health Care Education/Training Program
DX: O03.9 Complete or unspecified spontaneous abortion without complication (principal); N83.291 Other ovarian cyst, right side; N83.292 Other ovarian cyst, left side; N85.9 Noninflammatory disorder of uterus, unspecified
CPT/HCPCS: 36415; 76830; 76856; 82728; 83540; 83550; 84702; 85025

== ENCOUNTER → 2024-02-04 14:01 | Outpatient (CLI) | payer OTHER, SELFPAY ==
--- NOTE | 2024-02-04 14:01 | DI.US.S_ITS ---
PROCEDURE: US PELVIC COMPLETE INDICATIONS: Miscarriage TECHNIQUE: Real-time scanning was performed of the pelvic organs, with image documentation. Additional endovaginal scanning was necessary due to incomplete visualization of the adnexal and endometrial structures by transabdominal scanning. COMPARISON: [facility], , US PELVIC COMPLETE, 01/26/2024, 10:43. FINDINGS: Uterus: Uterus is anteverted and normal in size at 8.1 x 3.4 x 4.4 cm. The myometrium is homogeneous. The endometrium measures 9.4 mm combined thickness. There is heterogeneous debris within the endometrium, including a possible yolk sac. Ovaries: The right ovary measures 4.9 x 2.1 x 2.4 cm, with a calculated ovarian volume of 13 cc. The left ovary measures 2.4 x 1.5 x 2.8 cm, with a calculated ovarian volume of 5 cc. The ovaries have a normal sonographic appearance. Less than 12 follicles can be seen in each ovary. No adnexal masses are seen. Other: No pathologic free abdominal or pelvic fluid. IMPRESSION: Suspected retained products of conception, with heterogeneous debris within the endometrium and possible yolk sac. Differential includes hemorrhagic debris. We strive to produce accurate, complete, and clear reports of imaging services. To assist us in improving patient care, this report was composed using standard report templates and voice recognition software. Therefore, it may contain abnormal punctuation, insertions and/or omissions. Occasional wrong-word or sound-alike substitutions may occur. Though we review the report and make efforts to correct it, we do recommend that the report be read carefully in proper context to recognize any text inaccuracies. Dictated by: Mingo Boyd M.D. on 02/04/2024 at 17:27 Approved by: Mingo Boyd M.D. on 02/04/2024 at 17:29
== END ==
PROVIDERS: PCP Family Medicine; Referring Provider Family Medicine; Visit Provider Family Medicine
DX: O03.9 Complete or unspecified spontaneous abortion without complication (principal)
CPT/HCPCS: 76830; 76856; 93976

== ENCOUNTER 2024-02-08 13:26 | Day surgery (SDC) | payer OTHER, SELFPAY ==
[2024-02-05 14:47] VITALS: BMI 28.1
[2024-02-08] VITALS (8 sets, daily range): BP systolic 101–129; BP diastolic 65–85; PULSE 64–83; RESP 12–17; TEMP 36.1–36.7; O2SAT 96–100; BMI 28.1
--- NOTE | 2024-02-08 | PATH_ITS ---
[facility] Accession Number: [id number] No. of containers..01 Tissue . 01 Material submitted: . product of conception - PRODUCTS OF CONCEPTION . 01 Diagnosis: PRODUCTS OF CONCEPTION, CURETTINGS: Proliferative endometrium. Benign endocervical tissue. No chorionic villi or other products of conception identified in the entirely submitted and examined specimen. MRV 02/11/2024 1454 Local . 01 Electronically signed: . Daniela Greenberg MD, Pathologist NPI- [id number] . 01 Gross description: . Received in formalin with two patient identifiers and products of conception, are multiple dark red-brown soft tissue fragments admixed with mucohemorrhagic material aggregating to 4.0 x 3.0 x 0.8 cm. No tissue or spongy tissue fragments were identified. The specimen was filtered and submitted entirely in A1-A2. ([id number]) /MRV 02/10/2024 1419 Local . 01 Pathologist provided ICD-10: O02.1 . 01 CPT . 789516 Specimen Comment: A courtesy copy of this report has been sent to [phone] Performed at: [address] [address], [place], [place] [id number] MD Chito Evans MD Phone: [phone]
--- NOTE | 2024-02-08 13:47 | SUR.OPER ---
Lithotomy on padded OR bed, head on pillow, arms secured on padded arm boards at <90 degrees abduction. Legs secured in padded yellow fins stirrups.
[2024-02-08] MEDS: LACTATED RINGERS 1,000 ML 21 ML IV (14:11)
--- NOTE | 2024-02-08 14:26 | PM.PREOP ---
Pre-operative Note Interval Note History & Physical reviewed/Exam performed by Physician: Yes Changes to H&P: No
--- NOTE | 2024-02-08 14:26 | PM.GYNHP.1 ---
History of Present Illness History of Present Illness Reason for admission: incomplete Narrative: Adrienne Marx is a 38 year old female 3 para 2 with incomplete miscarriage. [facility] Medical History (Updated 02/08/24 @ 14:30 by Tasia Moreau MD) Hypoglycemia Migraine without aura (10/06/12) Environmental allergies (09/19/11) Asthma Generalized headaches Easy bruising Surgical History (Updated 12/24/23 @ 16:03 by Ailyn Presley, RN) History of hernia repair History of tonsillectomy and adenoidectomy Status post wrist surgery Family History (Updated 12/24/23 @ 16:06 by Ailyn Presley, RN) Mother Breast cancer Acute myeloid leukemia Adopted Father Leukemia Throat cancer Primary cancer of bone marrow Grandmother Brain aneurysm Social History marital status: number of children: 2 household members: spouse and children lives independently: Yes caregiver/support person: Yes housing: house pets and animals: Yes (3 cats, 2 dogs) education level: college occupational status: employed current occupational exposures/hazards: Yes (some kids that get violent) special kaya needs: No travel history: recent seatbelt use: always helmet use: Yes water heater temp set < 120 deg: Yes working smoke detector in home: Yes fire extinguisher in home: Yes carbon monox detector in home: Yes firearms in home: Yes firearms unloaded and locked: Yes do you feel safe at home: Yes Smoking Status: Never smoker second hand exposure: Yes ( vapes) alcohol intake: former substance use type: does not use during the past year weight has: increased > 10 lbs well-balanced diet: daily or most days daily servings fruits/ve or more times/day caffeine: Yes (no more than 200mg/day) Type(s) of exercise: walking and other Meds Home Medications and Allergies Home Medications Medication Instructions Recorded Confirmed Type cholecalciferol (vitamin D3) PO 11/10/17 02/04/24 History garlic kyolic PO 11/10/17 02/04/24 History omega-3 fatty acids PO 11/10/17 02/04/24 History prenat.vits,lowell,ngh-hfmt-pbfqc 1 tab PO DAILY 11/10/17 02/04/24 History magnesium 250 mg tablet 250 mg PO DAILY 12/24/23 02/04/24 History cetirizine 10 mg tablet 10 mg PO DAILY 02/08/24 02/08/24 History Allergies Allergy/AdvReac Type Severity Reaction Status Date / Time shrimp Allergy Severe swelling, Verified 02/08/24 13:59 itching cat dander Allergy Mild ITCHY Verified 02/08/24 13:59 WATERY EYES pollen extracts AdvReac Mild Sneezing Verified 02/08/24 13:59 Milk Containing Products AdvReac Abdominal Verified 02/08/24 13:59 (Dairy) Pain wheat AdvReac Verified 02/08/24 13:59 Review of Systems Review of Systems Narrative: Patient denies headaches. No fevers. She has some mild lower abdominal pain and cramping. No recent vaginal bleeding. Patient does have some cold symptoms for the past few days. COVID is pending. Exam Vital Signs (past 8 hours): - 02/08/24 14:07 Temperature 97.0 F L Pulse Rate 69 Respiratory Rate 16 Blood Pressure 129/82 Pulse Oximetry 100 Oxygen Delivery Method Room Air Oxygen Delivery Method Room Air Narrative Exam Narrative: HEENT exam within normal limits. Lungs are clear to auscultation percussion. Heart is regular rate and rhythm no S3-S4 murmurs. Abdomen is soft, with minimal lower abdominal tenderness but no rebound. Extremities without edema and nontender. Objective Imaging US - abdomen: Radiologist's impression: 02/04/2024 retained products of conception Labs Labs: 01/26/24 HCG level 142 down from 1690 on 12/31/2023 Assessment & Plan Assessment and plan (1) Incomplete miscarriage: Status: Acute Assessment & Plan narrative: Suction D&C. Patient has hydrocodone at home from the emergency room if she needs something for pain postop. Postop instructions to call for increasing rather than decreasing bleeding, pain. Call for concerns of infection such as the blood coming out has a bad odor or fever chills. Patient is warned she may still passed some small patient is a tissue. Consent form signed. Risk of reaction to medication or anesthesia, infection, retained products, scar tissue inside the uterus that may result in problems with further pregnancies, perforation of the uterus that could require additional surgery or opening the abdomen to repair. Time-Based Coding :: [TOTAL MINUTES] spent with patient and on the chart (including review of chart, obtaining history, exam, reviewing outside data, placing orders, documenting exam and treatment plan, and counseling patient) on [DATE].
[2024-02-08 14:29] LABS: COVID19 -Nasal RAPID Negative (Negative)
[2024-02-08] MEDS: ACETAMINOPHEN 325 MG TABLET 975 MG PO (14:31)
[2024-02-08] MEDS: CEFAZOLIN 2 GM/100 ML PREMIX 100 ML IV (14:41)
--- NOTE | 2024-02-08 14:58 | P.OP_ITS ---
Operative Date/Time/Diagnoses Date of procedure: 02/08/24 Time of procedure: 14:58 Pre-op diagnosis: Retained products of conception Post-op diagnosis: same Procedure & Clinicians Procedure: Suction D&C Same procedure as scheduled: Yes Indications: Incomplete miscarriage Surgeon: Tasia Moreau Click Yes if Unassisted: Yes Anesthesia Type: General Operative Notes Findings: Minimally enlarged uterus on exam under anesthesia. Normal appearance of vulva vagina and cervix. Small amount of retained products of conception. Closure Type: not applicable Specimen(s): other (Retained products of conception) Estimated Blood Loss (mL): 20 Blood products transfused: none Procedure in detail: Patient arrived into the operating room where she underwent general anesthesia was prepped and draped in usual sterile fashion in [facility]. Ancef was in prior to beginning the case. A check system was reviewed with staff in the room prior to beginning the case. Retractors were placed in the vagina and a single-tooth tenaculum placed on the anterior lip of the cervix. The cervix was dilated to a #8 Hegar dilator. The suction curette was placed into the uterus and tissue removed. Sharp curetting was performed to be sure there was no retained tissue. The suction curette was replaced. The patient had adequate hemostasis at the end of the case. She went to the recovery room in stable condition. Counts of instruments and sponges were correct. Complications: none Post-operative Condition: stable Disposition: same day surgery Plan for aftercare: Home when awake and stable. Follow-up with primary OB provider in 2 weeks.
[2024-02-08 15:41] LABS: HEMOLYSIS < 15 (0-50); Iron 103 ug/dL (37-170)
[2024-02-08 15:43] LABS: HCG Quantitative /Beta subunit < 2.39 mIU/mL
[2024-02-08 15:55] LABS: Percent Iron Saturation 37 % (15-50); Total Iron Binding Capacity 282 ug/dL (265-497); Transferrin 235 mg/dL (206-381)
[2024-02-08 16:01] LABS: Ferritin 31 ng/mL (6-137)
== END 2024-02-08 15:48 | disposition home or self-care (01) ==
PROVIDERS: PCP Family Medicine; Referring Provider Specialist; Visit Provider Specialist
PROC: (CPT 58120; principal; 2024-02-08 16:00)
DX: O02.1 Missed abortion (principal); Z11.52 Encounter for screening for COVID-19
CPT/HCPCS: 59820; 36415; 82728; 83540; 83550; 84702; 87635; J0690; J1100; J2250; J2405; J2704; J3010

== ENCOUNTER → 2024-08-27 10:51 | Outpatient (CLI) | payer OTHER, SELFPAY ==
--- NOTE | 2024-08-27 10:52 | DI.MRI.S_ITS ---
PROCEDURE: MR LUMBAR SPINE WO CON INDICATIONS: Lumbago with sciatica, change in bowel habits TECHNIQUE: Noncontrast sagittal T1 spin echo and T2 fast echo, sagittal STIR, and T2 fast spin echo through the lumbar spine. In cases with scoliosis, additional coronal T2 fast spin echo may be performed. COMPARISON: None. FINDINGS: Image quality: Excellent. Alignment and Curvature: There is normal bony alignment. Bone Marrow: Marrow is of normal overall signal. No acute vertebral body compression fractures. Spinal Cord: Conus medullaris terminates at the L1 level. Visualized cord demonstrates normal signal and size. Paraspinous Soft Tissues: No paravertebral masses. T12-L1: Normal appearance. L1-L2: Normal appearance. L2-L3: Hypertrophic arthropathy. No central or foraminal stenosis L3-L4: Disc bulge and arthropathy. Mild central stenosis. No foraminal stenosis L4-L5: Disc bulge and arthropathy. Mild central stenosis. No foraminal stenosis L5-S1: Disc bulge and arthropathy. No central or foraminal stenosis IMPRESSION: Multilevel arthropathy without significant central or foraminal stenosis throughout the exam Approved by: Cb Pantoja M.D. on 08/29/2024 at 17:40
== END ==
LOC: MRI 10:51
PROVIDERS: PCP Family Medicine; Referring Provider Family Medicine; Visit Provider Family Medicine
DX: M54.40 Lumbago with sciatica, unspecified side (principal); M47.816 Spondylosis without myelopathy or radiculopathy, lumbar region; M47.817 Spondylosis without myelopathy or radiculopathy, lumbosacral region; R19.5 Other fecal abnormalities
CPT/HCPCS: 72148

== ENCOUNTER → 2024-09-02 18:42 | Outpatient (CLI) | payer OTHER, SELFPAY ==
--- NOTE | 2024-09-02 18:46 | DI.MRI.S_ITS ---
PROCEDURE: MR KNEE RT WO CON INDICATIONS: r knee pain TECHNIQUE: Noncontrast sagittal PD fast spin echo and T2 fast spin echo with fat saturation, sagittal 3-D FLASH with fat saturation; coronal T1 spin echo and PD fast spin echo with fat saturation, and axial PD fast spin echo with fat saturation through the knee. COMPARISON: None. FINDINGS: Image quality: Excellent. Menisci: There is increased T2 weighted signal in the midbody and posterior horn of the lateral meniscus which may represent internal globular signal but on the coronal images raises the suspicion for possible horizontally oriented tear exiting to the inferior-lateral margin (series 13, image 23). Associated 8 mm lateral parameniscal cyst. 1 cm is noted adjacent to the medial meniscus posterior horn medially versus related to posterior meniscocapsular separation. On the coronal images the medial meniscus midbody is displaced medially. Otherwise the anterior and posterior horns of the medial meniscus are within normal limits in size and configuration without definitive tear. Cruciate ligaments: The anterior and posterior cruciate ligaments are intact. Medial structures: The medial collateral ligament appears intact. The semimembranosus tendon insertion is intact. Visualized portions of the pes anserinus tendons appear normal. No abnormal bursal fluid. Lateral structures: The lateral collateral ligament, long and short heads of the biceps femoris tendon appear intact. The popliteus tendon appears normal. Iliotibial band appears normal. Anterior structures: Increased T2 weighted signal and thickening with edema/tendinopathy of the distal quadriceps tendon predominantly medially and associated mild edema in the suprapatellar fat pad. Infrapatellar fat pad is normal. Possible patella Patricia configuration the patellar ligament measures approximately 6.0 cm in length with the craniocaudad measurement of the patella approximately 4.1 cm with ratio 1.46. Bones and cartilage: Mild diffuse cartilaginous thinning in the medial and lateral patellar facets without definitive focal cartilage defect. Moderate diffuse cartilaginous thinning in the lateral and medial compartments with areas of irregularity possible up to 1 cm cartilage defect in the lateral femoral condyle cartilage. No MR evidence of fracture or gross bone edema. Joint space: Trace knee joint effusion. No popliteal cyst. IMPRESSION: Possible horizontal tear with associated parameniscal cyst posterior horn lateral meniscus. Mild meniscocapsular separation. Chondromalacia patella and cartilaginous thinning lateral and medial compartments. Possible patella Patricia. Dictated by: Devang Mireles M.D. on 09/05/2024 at 12:59 Approved by: Devang Mireles M.D. on 09/05/2024 at 15:19
== END ==
LOC: MRI 18:43
PROVIDERS: PCP Family Medicine; Referring Provider Family Medicine; Visit Provider Family Medicine
DX: M22.41 Chondromalacia patellae, right knee (principal); M25.561 Pain in right knee; M25.469 Effusion, unspecified knee
CPT/HCPCS: 73721

== ENCOUNTER → 2024-11-02 14:44 | Outpatient (CLI) | payer OTHER, SELFPAY ==
[2024-11-02 15:09] LABS: Appearance Urine UA CLEAR; Bilirubin Urine UA NEGATIVE (NEGATIVE); Color Urine UA YELLOW; Glucose Urine UA NEGATIVE (Negative); Ketones Urine UA 1+ (NEGATIVE); Leukocyte Esterase Urine UA NEGATIVE (NEGATIVE); Nitrite Urine UA NEGATIVE (Negative); Occult Blood Urine UA NEGATIVE (Negative); Protein Urine UA NEGATIVE (Negative); Specific Gravity Urine UA >=1.030 (1.000-1.035); Urobilinogen Urine UA 0.2 E.U./dL (0.2)
[2024-11-02 15:09] LABS: Add Manual Diff / Slide Review NO; Hematocrit 35.3 % (36-46); Hemoglobin 12.6 g/dL (12.0-16.0); Lymphocytes Absolute Auto 1600 /uL (1100-4500); Mean Corpuscular HGB Conc 35.7 % (30-36); Mean Corpuscular Hemoglobin 32.6 PG (26-34); Mean Corpuscular Volume 91.5 fL (80-100); Platelet Count 231 X10^3/uL (150-400)
[2024-11-02 15:16] LABS: pH Urine UA 5.5 (4.5-8.0)
[2024-11-03 00:25] LABS: Hepatitis B Surface Antigen NEGATIVE s/c (NEGATIVE)
[2024-11-03 00:44] LABS: HIV 1 & 2 Ab/Ag 4th Gen Combo NEGATIVE (NEGATIVE); Hep C Virus Ab w/Reflex Quant NEGATIVE s/c (NEGATIVE)
== END ==
PROVIDERS: PCP Family Medicine; Referring Provider Family Medicine; Visit Provider Family Medicine
DX: Z34.80 Encounter for supervision of other normal pregnancy, unspecified trimester (principal)
CPT/HCPCS: 36415; 80055; 81003; 86787; 86803; 86850; 86900; 86901; 87086; 87389

== ENCOUNTER → 2024-11-11 10:43 | Outpatient (CLI) | payer OTHER, SELFPAY ==
[2024-11-11 11:53] LABS: Natera Collection Specimen Collected
== END ==
PROVIDERS: PCP Family Medicine; Referring Provider Obstetrics & Gynecology; Visit Provider Obstetrics & Gynecology
DX: Z34.81 Encounter for supervision of other normal pregnancy, first trimester (principal); Z34.91 Encounter for supervision of normal pregnancy, unspecified, first trimester; Z3A.13 13 weeks gestation of pregnancy
CPT/HCPCS: 36415

== ENCOUNTER → 2025-01-04 14:45 | Outpatient (CLI) | payer OTHER, SELFPAY ==
--- NOTE | 2025-01-04 14:46 | DI.US.S_ITS ---
PROCEDURE: US OB >= 14 WEEKS FETUS INDICATIONS: anatomy scan OUTSIDE/PRIOR DATING DATA: Last menstrual period (LMP): 08/09/2024. LMP-based estimated date of delivery ([facility]): 05/16/2025. First dating scan (date and location): 10/03/2024. Estimated date of delivery ([facility]) from first dating scan: 05/16/2025. The calculations are made using the [facility] of 05/16/2025. TECHNIQUE: Real-time scanning was performed of the fetus, with image documentation and biometric measurements. Endovaginal scanning: Not performed COMPARISON: None. FINDINGS: General: A single living intrauterine gestation is present. Presentation: Vertex. Placenta: Placental position is anterior , without previa. Amniotic fluid index: 17.2 cm, normal range is 5-24 cm. Single deepest vertical pocket is 6.2 cm. heart rate: 153 beats per minute. Maternal cervical canal: 4.9 cm long. Normal lower limit is 2.5 cm. biometrics: Biparietal diameter: 5.0 cm, 21 weeks 1 day Head circumference: 19.0 cm, 21 weeks 2 days Abdominal circumference: 16.1 cm, 21 weeks 1 day Femur length: 3.6 cm, 21 weeks 4 days Clinically estimated gestational age: 21 weeks 1 day Composite gestational age from present scan: 21 weeks 2 days Estimated weight and percentile: 417 g, 56% Anatomic survey: Neuro: Ventricles are non-dilated at less than 10 mm. Cisterna magna is normal at 3-11 mm. Cerebellum is normal in size and morphology. Nuchal skin fold: Normal at less than 6 mm between 14-21 weeks gestational age. Face: Nose and lips, facial profile are normal. Spine: No evidence for spina bifida. Heart: Left ventricular echogenic focus is noted measuring 1.6 mm. 4-chambered heart is present, with normal ventricular outflow tracts. Diaphragm: Diaphragm is intact. Stomach: Left-sided stomach is present. Kidneys: No hydronephrosis. Normal is less than 5 mm in 2nd trimester, less than 7 mm in 3rd trimester. Cord: 3-vessel cord has orthotopic insertion. Bladder: Normal in size. Extremities: All 4 extremities identified. IMPRESSION: 1. Single live intrauterine consistent with 21 weeks and 2 days. 2. Left ventricular echogenic focus is noted. Consider aneuploidy screening with cell free DNA for further evaluation. 3. The remainder of the anatomic survey is within normal limits. We strive to produce accurate, complete, and clear reports of imaging services. To assist us in improving patient care, this report was composed using standard report templates and voice recognition software. Therefore, it may contain abnormal punctuation, insertions and/or omissions. Occasional wrong-word or sound-alike substitutions may occur. Though we review the report and make efforts to correct it, we do recommend that the report be read carefully in proper context to recognize any text inaccuracies. Approved by: Humberto Valverde M.D. on 01/05/2025 at 15:01
== END ==
LOC: US 14:45
PROVIDERS: PCP Family Medicine; Referring Provider Family Medicine; Visit Provider Obstetrics & Gynecology
DX: Z34.82 Encounter for supervision of other normal pregnancy, second trimester (principal); Z3A.21 21 weeks gestation of pregnancy
CPT/HCPCS: 76811

== ENCOUNTER → 2025-02-15 14:37 | Outpatient (CLI) | payer OTHER, SELFPAY ==
[2025-02-15 17:17] LABS: Add Manual Diff / Slide Review NO; Hematocrit 34.1 % (36-46); Hemoglobin 11.8 g/dL (12.0-16.0); Lymphocytes Absolute Auto 1500 /uL (1100-4500); Mean Corpuscular HGB Conc 34.7 % (30-36); Mean Corpuscular Hemoglobin 31.5 PG (26-34); Mean Corpuscular Volume 90.8 fL (80-100); Platelet Count 234 X10^3/uL (150-400)
[2025-02-15 17:44] LABS: GTT (PREG) 1 Hour PP 50gm Dose 97 mg/dL (76-139)
== END ==
PROVIDERS: PCP Family Medicine; Referring Provider Family Medicine; Visit Provider Obstetrics & Gynecology
DX: Z34.80 Encounter for supervision of other normal pregnancy, unspecified trimester (principal); Z3A.26 26 weeks gestation of pregnancy
CPT/HCPCS: 36415; 82950; 85025